=== PATIENT | male | born 1965 | race Caucasian/White ===

== ENCOUNTER 2023-07-03 10:33 | Day surgery (SDC) | payer BC ==
[2023-06-27 13:07] LABS: BASOPHILS # (AUTO) 0.05 K/uL (0.00-0.20); BASOPHILS % (AUTO) 0.8 % (0.0-5.0); EOSINOPHILS # (AUTO) 0.29 K/uL (0.00-0.70); EOSINOPHILS % (AUTO) 4.8 % (0.0-8.0); HEMATOCRIT 40.7 % (42-54); IMMATURE GRANULOCYTE ABSOLUTE 0.05 K/uL (0-1); LYMPHOCYTES # (AUTO) 0.6 K/uL (1.0-4.8); LYMPHOCYTES % (AUTO) 10.3 % (21.0-51.0); MEAN CORPUSCULAR HEMOGLOBIN 29.6 pg (27.0-33.0); MEAN CORPUSCULAR HGB CONC 32.9 g/dL (32.0-36.0); MEAN CORPUSCULAR VOLUME 89.8 fL (79-99); MONOCYTES # (AUTO) 0.5 K/uL (0.1-1.0); MONOCYTES % (AUTO) 8.2 % (3.0-13.0); NEUTROPHILS # (AUTO) 4.6 K/uL (1.8-7.7); NEUTROPHILS % (AUTO) 75.1 % (40.0-77.0); PLATELET COUNT (AUTO) 212 K/uL (130-400); RED BLOOD CELL COUNT(AUTO) 4.53 MIL/uL (4.50-6.20); RED CELL DISTRIBUTION WIDTH 13.5 % (11.0-15.5); WHITE BLOOD COUNT (AUTO) 6.1 K/uL (4.8-10.8)
[2023-06-27 13:07] LABS: APPEARANCE,URINE CLEAR (CLEAR); BILIRUBIN,URINE NEGATIVE (NEGATIVE); GLUCOSE, URINE (UA) NEGATIVE (NEGATIVE); KETONES,URINE NEGATIVE (NEGATIVE); LEUKOCYTE ESTERASE ,URINE NEGATIVE Leu/uL (NEGATIVE); NITRATE,URINE NEGATIVE (NEGATIVE); OCCULT BLOOD,URINE NEGATIVE (NEGATIVE); PROTEIN,URINE NEGATIVE (NEGATIVE); UROBILINOGEN,URINE 0.2 mg/dL (0.2-1.0)
[2023-06-27 13:11] LABS: ADD UA MICROSCOPIC NO
[2023-06-27 13:12] LABS: COLOR,URINE YELLOW (YELLOW)
[2023-06-27 13:18] LABS: CREATININE 1.1 mg/dL (0.5-1.5); INR 0.93 (0.85-1.15); POTASSIUM 4.1 mmol/L (3.5-5.1); PROTHROMBIN TIME 10.7 SEC (9.6-11.6)
[2023-06-27 13:19] LABS: PARTIAL THROMBOPLASTIN TIME 26.8 SEC (26.3-35.5)
[2023-06-27 14:13] VITALS: BP 172/102; PULSE 64; RESP 20
[2023-07-03] VITALS (17 sets, daily range): BP systolic 139–175; BP diastolic 63–90; PULSE 55–80; RESP 14–18
[~2023-07-03] VITALS: Ht 177.8 cm; Wt 73.1 kg
[~2023-07-03 10:33] MED LIST: BICA50TA7 PO; CLOP75TA32 PO; LOSA50TA64 PO; MELO-108 PO; METO-391 PO; PHEN-947 PO; TAMS-1 PO
[2023-07-03] MEDS ORDERED: CEFTRIAXONE 1G VIAL ONE (10:48)
[2023-07-03] MEDS ORDERED: LACTATED RINGERS 1000ML 1,000 ML IV ONE (10:48)
[2023-07-03] MEDS ORDERED: SCOPOLAMINE HYDROBROMIDE 1 EACH ADH..PATCH TD ONE (15:09)
[2023-07-03] MEDS ORDERED: FENTANYL CITRATE PF 50 MCG/1 ML 2ML VIAL ONE ×2 (15:13→16:04)
[2023-07-03] MEDS ORDERED: MIDAZOLAM HCL 1 MG/ML 2ML VIAL ONE (15:13)
[2023-07-03] MEDS ORDERED: PROPOFOL 10 MG/ML 20ML VIAL IV ONE (15:13)
[2023-07-03] MEDS ORDERED: SUCCINYLCHOLINE CHLORIDE 20 MG/ML 10 ML VIAL ONE (15:19)
[2023-07-03] MEDS ORDERED: ROCURONIUM 10MG/1ML SYR 10 MG/ML ML ONE (15:19)
[2023-07-03] MEDS ORDERED: GLYCOPYRROLATE 1 MG/5 ML SYRINGE ONE (16:47)
[2023-07-03] MEDS ORDERED: NEOSTIGMINE 5MG/5ML SYR IV ONE (16:48)
[2023-07-03] MEDS ORDERED: MEPERIDINE-PF 25 MG/ML SYG ONE ×2 (17:08→17:20)
[2023-07-03] MEDS ORDERED: BACITRACIN 1 EACH PACKET TP ONE (18:11)
== END 2023-07-03 18:30 | disposition home or self-care (01) ==
LOC: DAH 10:33
PROVIDERS: ATTEND Urology
DX: N40.1 Benign prostatic hyperplasia with lower urinary tract symptoms (principal); Z20.822 Contact with and (suspected) exposure to COVID-19; R97.20 Elevated prostate specific antigen [PSA]; N32.89 Other specified disorders of bladder; R39.15 Urgency of urination; R35.0 Frequency of micturition; R33.8 Other retention of urine; R35.1 Nocturia; I10 Essential (primary) hypertension; E66.9 Obesity, unspecified; Z98.890 Other specified postprocedural states; Z79.01 Long term (current) use of anticoagulants; Z79.899 Other long term (current) drug therapy; Z88.0 Allergy status to penicillin; Z88.8 Allergy status to other drugs, medicaments and biological substances; Z86.73 Personal history of transient ischemic attack (TIA), and cerebral infarction without residual deficits
CPT/HCPCS: 80048; 85025; 85610; 85730; 87088; 81003; 36415; 71045; 93005 ×2; 52648; 88307; A6260; A4663; J7030; A4354; J7120; J3010 ×2; J3490; J2710; J0330; J0696; J2250; J2704; J2175 ×2; A4315; A4358; A4930; A4215; A4223; A4222; A4221; A4600